=== PATIENT | female | born 1990 | race Caucasian/White ===

== ENCOUNTER 2017-09-25 11:55 | Emergency (ER) | payer OTHER ==
[~2017-09-25] VITALS: Ht 162.5 cm; Wt 90.3 kg
[~2017-09-25 11:55] MED LIST: AMOXICILLIN500 MG PO; ATARAX25 MG PO; BACTRIM DS 8001 TA1 PO; HYDROCODONE BIT1 T11 PO; IBU800 M1 PO; KEFLEX500 MG PO; KENALOG0.1% TP; LIDEX0.05% T; MIRENA52 MG URE; MOTRIN800 MG PO; NITROFURANTOIN100 M2 PO; PREDNICOT20 MG PO; PRENATAL1 TA2 PO; PRENATAL1 TA7 PO; ZITHROMAX Z PA250 MG PO; Zofran4 MG PO; [UNRECOGNIZED DRUG - OTHER] TP
[2017-09-25 13:11] LABS: BASO # 0.1 10*3/uL (0.0-0.1); BASO % 0.3 % (0.0-1.0); EOS # 0.2 10*3/uL (0.0-0.4); EOS % 1.4 % (1.0-4.0); HEMATOCRIT 41.8 % (37.0-47.0); HEMOGLOBIN 14.7 g/dl (12.0-16.0); LYMPH % 12.3 % (27.0-41.0); MEAN CELL VOLUME 84.1 fl (81.0-99.0); MEAN CORPUSCULAR HGB 29.6 pg (27.0-31.0); MEAN CORPUSCULAR HGB CONC 35.2 g/dl (33.0-37.0); MEAN PLATELET VOLUME 9.9 fl (9.6-12.3); MONO # 0.9 10*3/uL (0.1-1.0); MONO % 5.8 % (3.0-9.0); NEUT # 12.9 10*3/uL (2.3-7.9); PLATELET COUNT AUTOMATED 255 10*3/uL (130-400); RED BLOOD COUNT 4.97 10*6/uL (4.10-5.10); RED CELL DISTRI WIDTH 11.9 % (0-14.5); WHITE BLOOD COUNT 16.1 10*3/uL (4.8-10.8)
[2017-09-25 13:21] LABS: BILIRUBIN NEGATIVE (NEGATIVE); BLOOD NEGATIVE (NEGATIVE); CLARITY CLOUDY (CLEAR); COLOR YELLOW (YELLOW); GLUCOSE NEGATIVE (NEGATIVE); KETONE NEGATIVE (NEGATIVE); LEUKO ESTERASE NEGATIVE (NEGATIVE); NITRITE NEGATIVE (NEGATIVE); PH 5.5 (5.0-9.0); SPECIFIC GRAVITY 1.025 (1.005-1.030); UROBILINOGEN 0.2 E.U./dl (0.2-1.0)
[2017-09-25 13:27] LABS: ALBUMIN 3.7 gm/dl (3.1-4.5); ALKALINE PHOSPHATASE 87 U/L (45-117); BUN 11 mg/dl (7-24); CHLORIDE 108 mmol/L (98-107); CREATININE 0.74 mg/dL (0.55-1.02); LIPASE 126 U/L (73-393); POTASSIUM 4.1 mmol/L (3.5-5.1); SGOT/AST 11 IU/L (3-35); SGPT/ALT 20 U/L (12-78); SODIUM 141 mmol/L (136-145); TOTAL PROTEIN 7.9 gm/dL (6.4-8.2)
[2017-09-25 13:29] LABS: B-hCG (QUALITATIVE) NEGATIVE (NEGATIVE)
[2017-09-25 13:32] LABS: BACTERIA TRACE; MUCOUS 3+
[2017-09-25 13:33] LABS: EPITHELIAL CELLS 21-30; RBC 0-2 rbc/hpf (0-2)
[2017-09-25] MEDS ORDERED: ZOFRAN ODT4 MG SL (15:42)
== END 2017-09-25 15:41 | disposition home or self-care (01) ==
LOC: ED 11:55
PROVIDERS: Physician Assistant
DX: N23 Unspecified renal colic (principal); R11.2 Nausea with vomiting, unspecified; R19.7 Diarrhea, unspecified; Z90.49 Acquired absence of other specified parts of digestive tract; Z91.041 Radiographic dye allergy status

== ENCOUNTER 2017-10-15 05:45 | Emergency (ER) | payer OTHER ==
[~2017-10-15] VITALS: Ht 162.5 cm; Wt 90.7 kg
[~2017-10-15 05:45] MED LIST changes: +ZOFRAN ODT4 MG SL
[2017-10-15 06:37] LABS: BASO % 0.3 % (0.0-1.0); EOS # 0.4 10*3/uL (0.0-0.4); EOS % 3.6 % (1.0-4.0); HEMATOCRIT 42.7 % (37.0-47.0); HEMOGLOBIN 14.6 g/dl (12.0-16.0); LYMPH # 2.1 10*3/uL (1.3-4.4); LYMPH % 18.3 % (27.0-41.0); MEAN CELL VOLUME 84.1 fl (81.0-99.0); MEAN CORPUSCULAR HGB 28.7 pg (27.0-31.0); MEAN CORPUSCULAR HGB CONC 34.2 g/dl (33.0-37.0); MEAN PLATELET VOLUME 10.5 fl (9.6-12.3); MONO # 0.6 10*3/uL (0.1-1.0); MONO % 5.3 % (3.0-9.0); NEUT # 8.2 10*3/uL (2.3-7.9); NEUT % 72.2 % (47.0-73.0); PLATELET COUNT AUTOMATED 230 10*3/uL (130-400); RED BLOOD COUNT 5.08 10*6/uL (4.10-5.10); RED CELL DISTRI WIDTH 11.9 % (0-14.5); WHITE BLOOD COUNT 11.3 10*3/uL (4.8-10.8)
[2017-10-15 06:50] LABS: BILIRUBIN NEGATIVE (NEGATIVE); BLOOD NEGATIVE (NEGATIVE); CLARITY SL CLOUDY (CLEAR); COLOR YELLOW (YELLOW); GLUCOSE NEGATIVE (NEGATIVE); KETONE NEGATIVE (NEGATIVE); LEUKO ESTERASE NEGATIVE (NEGATIVE); NITRITE NEGATIVE (NEGATIVE); SPECIFIC GRAVITY 1.015 (1.005-1.030); UROBILINOGEN 0.2 E.U./dl (0.2-1.0)
[2017-10-15 06:53] LABS: ALBUMIN 3.5 gm/dl (3.1-4.5); ALKALINE PHOSPHATASE 83 U/L (45-117); BUN 14 mg/dl (7-24); CHLORIDE 109 mmol/L (98-107); LIPASE 142 U/L (73-393); POTASSIUM 3.8 mmol/L (3.5-5.1); SGOT/AST 15 IU/L (3-35); SGPT/ALT 18 U/L (12-78); SODIUM 141 mmol/L (136-145); TOTAL PROTEIN 7.6 gm/dL (6.4-8.2)
[2017-10-15 06:57] LABS: BETA-HCG, QUANT < 1.0 mIU/mL (1-3)
[2017-10-15 07:04] LABS: URINE BARBITURATES < 200 (200ng/ml); URINE BENZODIAZEPINES < 200 (200ng/ml); URINE CANNABINOIDS (THC) > 50 (50ng/ml); URINE COCAINE < 300 (300ng/ml); URINE OPIATES < 300 (300ng/ml)
[2017-10-15 07:08] LABS: BACTERIA TRACE
[2017-10-15 07:15] LABS: URINE AMPHETAMINES < 1000 (1000ng/ml); URINE METHADONE < 300 (300ng/ml)
[2017-10-15 07:19] LABS: URINE PHENCYCLIDINE < 25 (25ng/ml)
[2017-10-15] MEDS ORDERED: IMODIUM A-D2 M2 PO (09:18)
[2017-10-15] MEDS ORDERED: ZOFRAN ODT4 MG SL (09:18)
== END 2017-10-15 09:33 | disposition home or self-care (01) ==
LOC: ED 05:45
PROVIDERS: Student in an Organized Health Care Education/Training Program
DX: K52.9 Noninfective gastroenteritis and colitis, unspecified (principal); Z91.041 Radiographic dye allergy status

== ENCOUNTER → 2017-12-14 | Outpatient (CLI) | payer OTHER ==
[~2017-12-14] MED LIST changes: +IMODIUM A-D2 M2 PO
== END ==
LOC: RAD 09:31
DX: M25.561 Pain in right knee (principal)

== ENCOUNTER → 2018-07-07 | Outpatient (CLI) | payer OTHER | END | disposition home or self-care (01) | LOC: US 16:49 | DX: N32.89 Other specified disorders of bladder (principal) ==

== ENCOUNTER → 2018-08-20 | Outpatient (CLI) | payer OTHER | END | disposition home or self-care (01) | LOC: US 10:30 | DX: N93.9 Abnormal uterine and vaginal bleeding, unspecified (principal) ==

== ENCOUNTER → 2019-01-10 | Outpatient (CLI) | payer OTHER ==
[~2019-01-10] MED LIST changes: +CEPHALEXIN500 M1 PO; +ZOFRAN4 MG PO
== END | disposition home or self-care (01) ==
LOC: RAD 14:53
DX: N20.0 Calculus of kidney (principal)

== ENCOUNTER 2019-01-21 10:13 | Emergency (ER) | payer OTHER ==
[~2019-01-21] VITALS: Ht 160 cm; Wt 88.9 kg
[~2019-01-21 10:13] MED LIST changes: -CEPHALEXIN500 M1 PO; -ZOFRAN4 MG PO
[2019-01-21 10:36] LABS: BASO % 0.3 % (0.0-1.0); EOS # 0.2 10*3/uL (0.0-0.4); EOS % 1.3 % (1.0-4.0); LYMPH % 16.3 % (27.0-41.0); MEAN CELL VOLUME 87.4 fl (81.0-99.0); MEAN CORPUSCULAR HGB 30.5 pg (27.0-31.0); MEAN CORPUSCULAR HGB CONC 34.9 g/dl (33.0-37.0); MONO # 0.6 10*3/uL (0.1-1.0); MONO % 4.7 % (3.0-9.0); NEUT # 9.3 10*3/uL (2.3-7.9); NEUT % 77.2 % (47.0-73.0); PLATELET COUNT AUTOMATED 226 10*3/uL (130-400); RED BLOOD COUNT 4.92 10*6/uL (4.10-5.10); RED CELL DISTRI WIDTH 11.9 % (0-14.5); WHITE BLOOD COUNT 12.1 10*3/uL (4.8-10.8)
[2019-01-21 10:49] LABS: ALBUMIN 3.9 gm/dl (3.1-4.5); ALKALINE PHOSPHATASE 60 U/L (45-117); BUN 13 mg/dl (7-24); CHLORIDE 109 mmol/L (98-107); CREATININE 0.77 mg/dL (0.55-1.02); POTASSIUM 3.7 mmol/L (3.5-5.1); SGOT/AST 12 IU/L (3-35); SGPT/ALT 20 U/L (12-78); SODIUM 139 mmol/L (136-145); TOTAL PROTEIN 7.9 gm/dL (6.4-8.2)
[2019-01-21 11:05] LABS: BILIRUBIN 1+ (NEGATIVE); BLOOD 1+ (NEGATIVE); CLARITY CLOUDY (CLEAR); COLOR ORANGE (YELLOW); GLUCOSE 1+ (NEGATIVE); KETONE 1+ (NEGATIVE); NITRITE POSITIVE (NEGATIVE); PH 6.5 (5.0-9.0); SPECIFIC GRAVITY 1.015 (1.005-1.030); UROBILINOGEN >= 8.0 E.U./dl (0.2-1.0)
[2019-01-21 11:08] LABS: LEUKO ESTERASE 3+ (NEGATIVE)
[2019-01-21 11:19] LABS: BACTERIA 3+; EPITHELIAL CELLS 16-20; WBC TNTC wbc/hpf (0-5)
[2019-01-21] MEDS ORDERED: CEPHALEXIN500 M1 PO (11:29)
[2019-01-21] MEDS ORDERED: ZOFRAN4 MG PO (11:29)
== END 2019-01-21 12:55 | disposition home or self-care (01) ==
LOC: ED 10:13
PROVIDERS: Nurse Practitioner Family
DX: N39.0 Urinary tract infection, site not specified (principal); Z91.041 Radiographic dye allergy status; Z87.442 Personal history of urinary calculi; Z90.49 Acquired absence of other specified parts of digestive tract

== ENCOUNTER → 2019-10-17 | Outpatient (CLI) | payer OTHER ==
[~2019-10-17] MED LIST changes: +CEPHALEXIN500 M1 PO; +ZOFRAN4 MG PO
== END | disposition home or self-care (01) ==
LOC: US 07:30
DX: R10.11 Right upper quadrant pain (principal)

== ENCOUNTER → 2019-10-21 | Outpatient (CLI) | payer OTHER | END | disposition home or self-care (01) | LOC: NM 07:51 | DX: R10.11 Right upper quadrant pain (principal) ==

== ENCOUNTER → 2019-12-29 | Outpatient (CLI) | payer OTHER ==
[~2019-12-29] MED LIST changes: +NORCO 5-325 TA1 EACH PO; +ZYRTEC10 M3 PO
[2019-12-29 14:28] LABS: BASO % 0.2 % (0.0-1.0); EOS # 0.1 10*3/uL (0.0-0.4); EOS % 0.8 % (1.0-4.0); HEMATOCRIT 40.8 % (37.0-47.0); LYMPH # 1.6 10*3/uL (1.3-4.4); LYMPH % 16.5 % (27.0-41.0); MEAN CELL VOLUME 89.1 fl (81.0-99.0); MEAN CORPUSCULAR HGB 30.6 pg (27.0-31.0); MEAN CORPUSCULAR HGB CONC 34.3 g/dl (33.0-37.0); MEAN PLATELET VOLUME 10.1 fl (9.6-12.3); MONO # 0.4 10*3/uL (0.1-1.0); MONO % 4.4 % (3.0-9.0); NEUT # 7.5 10*3/uL (2.3-7.9); NEUT % 77.6 % (47.0-73.0); PLATELET COUNT AUTOMATED 225 10*3/uL (130-400); RED BLOOD COUNT 4.58 10*6/uL (4.10-5.10); RED CELL DISTRI WIDTH 11.8 % (0-14.5); WHITE BLOOD COUNT 9.6 10*3/uL (4.8-10.8)
[2019-12-29 14:39] LABS: ACT PARTIAL THROMBO TIME 26.7 SECONDS (20.0-32.1)
[2019-12-29 14:42] LABS: BUN 13 mg/dl (7-24); CHLORIDE 111 mmol/L (98-107); CREATININE 0.77 mg/dL (0.55-1.02); POTASSIUM 3.9 mmol/L (3.5-5.1); SODIUM 141 mmol/L (136-145)
[2019-12-29 15:15] LABS: BACTERIA 2+; BILIRUBIN NEGATIVE (NEGATIVE); BLOOD 3+ (NEGATIVE); CLARITY SL CLOUDY (CLEAR); COLOR YELLOW (YELLOW); EPITHELIAL CELLS 41-50; GLUCOSE NEGATIVE (NEGATIVE); KETONE NEGATIVE (NEGATIVE); LEUKO ESTERASE TRACE (NEGATIVE); NITRITE NEGATIVE (NEGATIVE); SPECIFIC GRAVITY 1.015 (1.005-1.030); UROBILINOGEN 0.2 E.U./dl (0.2-1.0)
== END | disposition home or self-care (01) ==
LOC: LAB 13:18
PROVIDERS: Surgery
DX: K82.8 Other specified diseases of gallbladder (principal)

== ENCOUNTER → 2020-01-05 | Day surgery (SDC) | payer OTHER ==
[2019-12-29 13:25] VITALS: BP 140/82
[~2020-01-05] VITALS: Ht 160 cm; Wt 82.6 kg
[2020-01-05] VITALS (8 sets, daily range): BP systolic 97–110; BP diastolic 43–68
--- NOTE | 2020-01-05 09:21 | NUR ---
ADMINISTERED 4MG ZOFRAN IV FOR C/O NAUSEA
--- NOTE | 2020-01-05 09:40 | NUR ---
ASSISTED UP TO CHAIR, PT STATES PAIN 5/10, STATES NAUSEA BETTER BUT"STILL A FAINT OF IT" TOLERATING ICE CHIPS
--- NOTE | 2020-01-05 09:54 | NUR ---
MEDICATED WITH REGLAN 10MG IV PER ORDERED FOR ADDITIONAL C/O NAUSEA
--- NOTE | 2020-01-05 10:04 | NUR ---
PT ASSISTED BACK TO BED FOR C/O SLEEPINESS WANTS TO GO HOME, INFORMED WE WILL LET HER REST A FEW MINUTES
--- NOTE | 2020-01-05 10:11 | NUR ---
PT STATES NAUSEA BETTER, DOES HAVE "GAS PRESSURE"
== END | disposition home or self-care (01) ==
LOC: SDC 12-29 13:15
DX: K82.8 Other specified diseases of gallbladder (principal); K21.9 Gastro-esophageal reflux disease without esophagitis; M19.90 Unspecified osteoarthritis, unspecified site; F17.210 Nicotine dependence, cigarettes, uncomplicated; Z79.899 Other long term (current) drug therapy; Z98.890 Other specified postprocedural states

== ENCOUNTER → 2020-08-14 | Outpatient (CLI) | payer OTHER | END | disposition home or self-care (01) | LOC: COVID19 14:24 | PROVIDERS: ATTEND Nurse Practitioner Family | DX: Z20.822 Contact with and (suspected) exposure to COVID-19 (principal) ==

== ENCOUNTER → 2020-10-26 | Outpatient (CLI) | payer OTHER | END | disposition home or self-care (01) | LOC: RAD 16:28 | PROVIDERS: ATTEND Nurse Practitioner Family | DX: R05 Cough (principal); F17.210 Nicotine dependence, cigarettes, uncomplicated ==

== ENCOUNTER → 2021-03-26 | Outpatient (CLI) | payer OTHER | END | disposition home or self-care (01) | LOC: RAD 11:48 | PROVIDERS: ATTEND Nurse Practitioner Family | DX: M25.511 Pain in right shoulder (principal); M54.2 Cervicalgia; M54.12 Radiculopathy, cervical region; M89.8X1 Other specified disorders of bone, shoulder ==

== ENCOUNTER 2021-04-22 11:02 | Inpatient (IN) | payer OTHER ==
[~2021-04-22] VITALS: Ht 160 cm; Wt 86.4 kg
[~2021-04-22 11:02] MED LIST changes: +AUGMENTIN 875875 MG PO
[2021-04-22 11:17] VITALS: BP 124/68
[2021-04-22 13:20] LABS: BASO % 0.1 % (0.0-1.0); EOS % 0.1 % (1.0-4.0); LYMPH # 0.9 10*3/uL (1.3-4.4); LYMPH % 4.2 % (27.0-41.0); MEAN CELL VOLUME 86.4 fl (81.0-99.0); MEAN CORPUSCULAR HGB CONC 34.7 g/dl (33.0-37.0); MONO # 1.1 10*3/uL (0.1-1.0); MONO % 5.3 % (3.0-9.0); NEUT # 18.5 10*3/uL (2.3-7.9); NEUT % 89.7 % (47.0-73.0); PLATELET COUNT AUTOMATED 258 10*3/uL (130-400); WHITE BLOOD COUNT 20.7 10*3/uL (4.8-10.8)
[2021-04-22 13:38] LABS: ALBUMIN 3.4 gm/dl (3.1-4.5); ALKALINE PHOSPHATASE 95 U/L (45-117); BUN 12 mg/dl (7-24); CHLORIDE 107 mmol/L (98-107); CREATININE 0.61 mg/dL (0.55-1.02); LIPASE 54 U/L (73-393); POTASSIUM 3.3 mmol/L (3.5-5.1); SGOT/AST 88 IU/L (3-35); SGPT/ALT 300 U/L (12-78); SODIUM 139 mmol/L (136-145); TOTAL PROTEIN 7.5 gm/dL (6.4-8.2)
[2021-04-22 13:39] LABS: BETA-HCG, QUANT < 1.0 mIU/mL (1-3)
[2021-04-23 05:17] LABS: ALKALINE PHOSPHATASE 130 U/L (45-117); BUN 6 mg/dl (7-24); CHLORIDE 106 mmol/L (98-107); CREATININE 0.58 mg/dL (0.55-1.02); SGOT/AST 173 IU/L (3-35); SGPT/ALT 298 U/L (12-78); SODIUM 137 mmol/L (136-145); TOTAL PROTEIN 6.8 gm/dL (6.4-8.2)
[2021-04-23 06:13] LABS: BASO % 0.1 % (0.0-1.0); EOS % 0.3 % (1.0-4.0); HEMATOCRIT 35.9 % (37.0-47.0); LYMPH # 1.6 10*3/uL (1.3-4.4); LYMPH % 10.4 % (27.0-41.0); MEAN CELL VOLUME 89.3 fl (81.0-99.0); MEAN CORPUSCULAR HGB 30.3 pg (27.0-31.0); MEAN PLATELET VOLUME 10.6 fl (9.6-12.3); MONO % 6.9 % (3.0-9.0); NEUT # 12.2 10*3/uL (2.3-7.9); NEUT % 81.9 % (47.0-73.0); PLATELET COUNT AUTOMATED 231 10*3/uL (130-400); RED BLOOD COUNT 4.02 10*6/uL (4.10-5.10); RED CELL DISTRI WIDTH 12.3 % (0-14.5); WHITE BLOOD COUNT 14.9 10*3/uL (4.8-10.8)
[2021-04-23 15:14] VITALS: BP 129/64
[2021-04-23 15:23] VITALS: BP 125/75
[2021-04-23 16:00] VITALS: BP 125/75
[2021-04-23 20:00] VITALS: BP 122/80
[2021-04-24] VITALS: BP 110/58
[2021-04-24 06:11] LABS: ALBUMIN 2.7 gm/dl (3.1-4.5); ALKALINE PHOSPHATASE 139 U/L (45-117); BUN 7 mg/dl (7-24); CHLORIDE 108 mmol/L (98-107); CREATININE 0.52 mg/dL (0.55-1.02); POTASSIUM 3.9 mmol/L (3.5-5.1); SGOT/AST 68 IU/L (3-35); SGPT/ALT 226 U/L (12-78); SODIUM 138 mmol/L (136-145); TOTAL PROTEIN 6.7 gm/dL (6.4-8.2)
[2021-04-24 06:17] LABS: HEMATOCRIT 35.7 % (37.0-47.0); MEAN CELL VOLUME 91.3 fl (81.0-99.0); MEAN CORPUSCULAR HGB 30.7 pg (27.0-31.0); MEAN CORPUSCULAR HGB CONC 33.6 g/dl (33.0-37.0); MEAN PLATELET VOLUME 11.2 fl (9.6-12.3); PLATELET COUNT AUTOMATED 182 10*3/uL (130-400); RED BLOOD COUNT 3.91 10*6/uL (4.10-5.10); RED CELL DISTRI WIDTH 12.1 % (0-14.5); WHITE BLOOD COUNT 12.4 10*3/uL (4.8-10.8)
[2021-04-24 07:43] LABS: PLATELET SUFFICIENCY NORMAL (NORMAL); TOTAL CELLS COUNTED 100 #CELLS
[2021-04-24 08:00] VITALS: BP 130/91
[2021-04-24 12:00] VITALS: BP 142/79
[2021-04-24 16:00] VITALS: BP 150/80
[2021-04-24 20:00] VITALS: BP 130/71
[2021-04-25] VITALS (7 sets, daily range): BP systolic 99–137; BP diastolic 69–86
[2021-04-25 07:54] LABS: ALBUMIN 2.8 gm/dl (3.1-4.5); ALKALINE PHOSPHATASE 130 U/L (45-117); BUN 8 mg/dl (7-24); CHLORIDE 107 mmol/L (98-107); CREATININE 0.77 mg/dL (0.55-1.02); POTASSIUM 3.2 mmol/L (3.5-5.1); SGOT/AST 30 IU/L (3-35); SGPT/ALT 157 U/L (12-78); SODIUM 140 mmol/L (136-145)
[2021-04-25 07:57] LABS: BASO % 0.2 % (0.0-1.0); EOS # 0.2 10*3/uL (0.0-0.4); EOS % 1.3 % (1.0-4.0); HEMATOCRIT 37.2 % (37.0-47.0); LYMPH # 2.1 10*3/uL (1.3-4.4); LYMPH % 16.7 % (27.0-41.0); MEAN CELL VOLUME 90.7 fl (81.0-99.0); MEAN CORPUSCULAR HGB 30.2 pg (27.0-31.0); MEAN CORPUSCULAR HGB CONC 33.3 g/dl (33.0-37.0); MEAN PLATELET VOLUME 10.2 fl (9.6-12.3); MONO # 0.7 10*3/uL (0.1-1.0); MONO % 5.8 % (3.0-9.0); NEUT # 9.6 10*3/uL (2.3-7.9); NEUT % 75.8 % (47.0-73.0); WHITE BLOOD COUNT 12.6 10*3/uL (4.8-10.8)
[2021-04-25 08:02] LABS: PLATELET COUNT AUTOMATED 293 10*3/uL (130-400)
[2021-04-25] MEDS ORDERED: SEPTDS PO (16:59)
[2021-04-25] MEDS ORDERED: HYDROCODONE-AC1 EAC1 PO (16:59)
[2021-04-25] MEDS ORDERED: CIPRO500 MG PO (16:59)
== END 2021-04-25 17:50 | disposition home or self-care (01) | DRG 364 ==
LOC: ED 11:02 → 4E 13:09 → EDHOLD 13:09 → 4E 04-23 14:34
PROVIDERS: Emergency Medicine; Family Medicine; Hospitalist; Internal Medicine; ADMIT Internal Medicine; ATTEND Internal Medicine
PROC: 0JBJ0ZZ Excision of Right Hand Subcutaneous Tissue and Fascia, Open Approach (ICD-10-PCS; principal; 2021-04-25)
PROC: 3E0T3BZ Introduction of Anesthetic Agent into Peripheral Nerves and Plexi, Percutaneous Approach (ICD-10-PCS; 2021-04-25)
PROC: 8E0XXY8 Suture Removal from Upper Extremity (ICD-10-PCS; 2021-04-25)
DX: S61.228A Laceration with foreign body of other finger without damage to nail, initial encounter (principal); L03.113 Cellulitis of right upper limb; F43.29 Adjustment disorder with other symptoms; E87.6 Hypokalemia; R17 Unspecified jaundice; F17.210 Nicotine dependence, cigarettes, uncomplicated; X58.XXXA Exposure to other specified factors, initial encounter; R74.01 Elevation of levels of liver transaminase levels; L03.011 Cellulitis of right finger; Y83.8 Other surgical procedures as the cause of abnormal reaction of the patient, or of later complication, without mention of misadventure at the time of the procedure; Y92.89 Other specified places as the place of occurrence of the external cause; Z91.041 Radiographic dye allergy status; Z79.899 Other long term (current) drug therapy; Z79.1 Long term (current) use of non-steroidal anti-inflammatories (NSAID); Y93.89 Activity, other specified; Y99.8 Other external cause status; Z90.49 Acquired absence of other specified parts of digestive tract; Z71.6 Tobacco abuse counseling; L08.9 Local infection of the skin and subcutaneous tissue, unspecified; E44.0 Moderate protein-calorie malnutrition

== ENCOUNTER → 2021-09-11 | Outpatient (CLI) | payer OTHER ==
[~2021-09-11] MED LIST changes: +CIPRO500 MG PO; +HYDROCODONE-AC1 EAC1 PO; +SEPTDS PO
== END | disposition home or self-care (01) ==
LOC: MAMMO 10:00
PROVIDERS: ATTEND Nurse Practitioner Family
DX: N63.20 Unspecified lump in the left breast, unspecified quadrant (principal); N64.4 Mastodynia

== ENCOUNTER → 2021-09-27 | Outpatient (CLI) | payer OTHER | END | disposition home or self-care (01) | LOC: ORTHO 00:12 | PROVIDERS: ATTEND Orthopaedic Surgery | DX: M79.641 Pain in right hand (principal) ==

== ENCOUNTER → 2021-11-07 | Day surgery (SDC) | payer OTHER ==
[2021-11-04 14:22] VITALS: BP 137/93
[2021-11-04 15:18] LABS: BUN 14 mg/dl (7-24); CHLORIDE 109 mmol/L (98-107); CREATININE 0.68 mg/dL (0.55-1.02); POTASSIUM 3.5 mmol/L (3.5-5.1); SODIUM 142 mmol/L (136-145)
[~2021-11-07] VITALS: Ht 160 cm; Wt 86.2 kg
[2021-11-07 06:46] VITALS: BP 102/51
[2021-11-07 08:15] VITALS: BP 126/54
[2021-11-07 08:30] VITALS: BP 103/58
[2021-11-07 08:45] VITALS: BP 103/63
== END | disposition home or self-care (01) ==
LOC: SDC 11-04 14:00
PROVIDERS: ATTEND Orthopaedic Surgery
DX: S62.614A Displaced fracture of proximal phalanx of right ring finger, initial encounter for closed fracture (principal); M24.541 Contracture, right hand; F17.210 Nicotine dependence, cigarettes, uncomplicated; M15.2 Bouchard's nodes (with arthropathy); W01.0XXA Fall on same level from slipping, tripping and stumbling without subsequent striking against object, initial encounter; Y93.89 Activity, other specified; Y92.89 Other specified places as the place of occurrence of the external cause; Y99.8 Other external cause status; Z20.822 Contact with and (suspected) exposure to COVID-19

== ENCOUNTER → 2022-06-24 | Outpatient (CLI) | payer OTHER | LOC: RAD 17:26 | PROVIDERS: ATTEND Nurse Practitioner Family | DX: M25.431 Effusion, right wrist (principal); M25.531 Pain in right wrist ==

== ENCOUNTER 2022-08-21 20:13 | Emergency (ER) | payer OTHER, BC ==
[~2022-08-21] VITALS: Ht 160 cm; Wt 89.8 kg
== END 2022-08-21 22:14 | disposition home or self-care (01) ==
LOC: ED 20:13
DX: S66.811A Strain of other specified muscles, fascia and tendons at wrist and hand level, right hand, initial encounter (principal); Z91.041 Radiographic dye allergy status; Z90.49 Acquired absence of other specified parts of digestive tract; Z98.51 Tubal ligation status; Z87.891 Personal history of nicotine dependence; X50.0XXA Overexertion from strenuous movement or load, initial encounter; Y93.89 Activity, other specified; Y92.89 Other specified places as the place of occurrence of the external cause; Y99.8 Other external cause status

== ENCOUNTER → 2022-12-25 | Outpatient (CLI) | payer OTHER | END | disposition home or self-care (01) | LOC: RAD 09:09 | PROVIDERS: ATTEND Nurse Practitioner Family | DX: M25.561 Pain in right knee (principal); M25.562 Pain in left knee ==

== ENCOUNTER → 2022-12-30 | Outpatient (CLI) | payer OTHER | END | disposition home or self-care (01) | LOC: US 12:34 | PROVIDERS: ATTEND Nurse Practitioner Women's Health | DX: N88.8 Other specified noninflammatory disorders of cervix uteri (principal); N94.6 Dysmenorrhea, unspecified; Z97.5 Presence of (intrauterine) contraceptive device ==

== ENCOUNTER → 2023-01-27 | Outpatient (CLI) | payer OTHER | END | disposition home or self-care (01) | LOC: RAD 14:23 | PROVIDERS: ATTEND Nurse Practitioner Primary Care | DX: M19.011 Primary osteoarthritis, right shoulder (principal) ==

== ENCOUNTER → 2023-04-09 | Outpatient (CLI) | payer OTHER ==
[2023-04-09 09:19] LABS: BILIRUBIN Negative (Negative); BLOOD Negative (Negative); CLARITY Cloudy (Clear); COLOR Yellow (Yellow); GLUCOSE Negative (Negative); KETONE Trace (Negative); LEUKO ESTERASE Trace (Negative); NITRITE Negative (Negative); SPECIFIC GRAVITY 1.025 (1.001-1.030)
[2023-04-09 09:29] LABS: BACTERIA 3+; EPITHELIAL CELLS 21-30
[2023-04-09 09:31] LABS: BASO % 0.3 % (0.0-1.0); EOS # 0.2 10*3/uL (0.0-0.4); EOS % 1.8 % (1.0-4.0); HEMATOCRIT 44.7 % (37.0-47.0); LYMPH # 2.5 10*3/uL (1.3-4.4); LYMPH % 27.6 % (27.0-41.0); MEAN CELL VOLUME 91.8 fl (81.0-99.0); MEAN CORPUSCULAR HGB 30.4 pg (27.0-31.0); MEAN CORPUSCULAR HGB CONC 33.1 g/dl (33.0-37.0); MEAN PLATELET VOLUME 9.7 fl (9.6-12.3); MONO # 0.4 10*3/uL (0.1-1.0); MONO % 4.5 % (3.0-9.0); NEUT # 5.8 10*3/uL (2.3-7.9); NEUT % 65.4 % (47.0-73.0); PLATELET COUNT AUTOMATED 271 10*3/uL (130-400); RED BLOOD COUNT 4.87 10*6/uL (4.10-5.10); RED CELL DISTRI WIDTH 11.9 % (0-14.5); WHITE BLOOD COUNT 8.9 10*3/uL (4.8-10.8)
[2023-04-09 09:49] LABS: ALKALINE PHOSPHATASE 70 U/L (46-116); BUN 9 mg/dl (9-23); CHLORIDE 103 mmol/L (98-107); LIPASE 36 U/L (12-53); POTASSIUM 4.2 mmol/L (3.4-5.1); SGPT/ALT 19 U/L (10-49); TOTAL PROTEIN 7.6 gm/dL (6.0-8.0)
== END | disposition home or self-care (01) ==
LOC: LAB 08:40
PROVIDERS: ATTEND Nurse Practitioner Family
DX: R30.0 Dysuria (principal); R10.12 Left upper quadrant pain; Z90.49 Acquired absence of other specified parts of digestive tract; Z97.5 Presence of (intrauterine) contraceptive device

== ENCOUNTER → 2023-04-29 | Outpatient (CLI) | payer OTHER | END | disposition home or self-care (01) | LOC: RAD 08:00 | PROVIDERS: ATTEND Nurse Practitioner Family | DX: R10.13 Epigastric pain (principal); M79.622 Pain in left upper arm; Z98.890 Other specified postprocedural states; Z90.49 Acquired absence of other specified parts of digestive tract ==